=== PATIENT | female | born 1955 | race Caucasian/White ===

== ENCOUNTER 2024-01-19 20:01 | Emergency (ER) | payer MEDICARE ==
[~2024-01-19] VITALS: Ht 160 cm; Wt 63.5 kg
[2024-01-19] MEDS ORDERED: Ondansetron HCl 2 MG / ML 2ML Vial IV ONE ×2 (20:15→22:20)
[2024-01-19] MEDS ORDERED: Ketorolac Tromethamine 15mg Vial IV ONE (20:15)
[2024-01-19 20:49] LABS: Source, Urine Clean Catch
[2024-01-19 20:54] LABS: Appearance, Urine Clear (Clear); Bilirubin, Urine Neg (Neg); Blood, Urine 1+ (Neg); Color, Urine Yellow (P-Yellow); Glucose Qualitative, Urine Neg (Neg); Ketones, Urine Neg (Neg); Leukocyte Esterase, Urine 2+ (Neg); Nitrite, Urine Pos (Neg); Protein, Urine 1+ (Neg); Specific Gravity, Urine 1.015 (1.003-1.022); Urobilinogen, Urine NORM (Normal)
[2024-01-19 21:03] LABS: Bacteria Many /hpf; Squamous Epithelial Cells Few /hpf (Few)
[2024-01-19 21:17] LABS: Hematocrit 38.7 % (33.0-51.0); Hemoglobin 12.5 g/dL (11.5-16.0); Mean Corpuscular HGB 30.9 pg (26.0-34.0); Mean Corpuscular HGB Conc 32.3 g/dL (31.5-36.5); Mean Corpuscular Volume 96 fL (80-100); Mean Platelet Volume 10.6 fL (9.1-12.4); Platelet Count 178 K/mm3 (150-400); RDW Coefficient Variation 14.2 % (11.7-14.2); RDW Standard Deviation 49.2 fL (35.1-46.3); Red Blood Cell Count 4.04 M/mm3 (3.80-5.20); White Blood Cell Count 3.91 K/mm3 (4.00-11.30)
[2024-01-19 21:23] LABS: Albumin, Blood 3.6 g/dL (3.4-5.0); Albumin/Globulin Ratio 1.1 (0.8-1.8); Bilirubin, Total 1.2 mg/dL (0.1-1.0); Bun/Creatinine Ratio 20.6 (12.0-20.0); Calcium, Blood 9.1 mg/dL (8.5-10.1); Creatinine, Blood 1.07 mg/dL (0.40-1.00); Globulin, Blood 3.3 g/dL (2.2-4.0); Total Protein, Blood 6.9 g/dL (6.4-8.2)
[2024-01-19] MEDS ORDERED: CefTRIAXone Sodium 1,000 MG in NS 100 ML IV ONE (21:35)
[2024-01-19 22:16] LABS: BAND PERCENT MAN 18 % (0-8); BASOPHILS ABSOLUTE MAN 0.03 K/mm3 (0.00-0.23); BASOPHILS PERCENT MAN 1 % (0-2); EOSINOPHILS PERCENT MAN 0 % (0-6); LYMPHOCYTES ABSOLUTE MAN 0.35 K/mm3 (0.84-5.20); LYMPHOCYTES PERCENT MAN 9 % (21-46); MONOCYTES ABSOLUTE MAN 0.03 K/mm3 (0.16-1.47); MONOCYTES PERCENT MAN 1 % (4-13); NEUTROPHILS ABSOLUTE MAN 3.47 K/mm3 (1.96-9.15); SEG NEUTROPHILS PERCENT MAN 71 % (41-73); TOTAL CELLS COUNTED 100
[2024-01-19] MEDS ORDERED: Morphine Sulfate 4 MG/1 ML Injection IV ONE (22:20)
[2024-01-19] MEDS ORDERED: NS 1,000 ML IV SCH (23:50)
[2024-01-20] MEDS ORDERED: Morphine Sulfate 4 MG/1 ML Injection IV PRN (01:25)
[2024-01-20 01:30] VITALS: BP 104/64
== END 2024-01-20 01:35 | disposition short-term general hospital (02) ==
LOC: ER 20:01
PROVIDERS: Physician Assistant
DX: N13.2 Hydronephrosis with renal and ureteral calculous obstruction (principal); Z88.1 Allergy status to other antibiotic agents
CPT/HCPCS: 74177; 80053; 81001; 85025; 87077; 87086; 87186; 96361; 96365-59; 96375; 96376; 99285-25; J0696; J1885; J2270; J2405; Q9967

== ENCOUNTER → 2024-03-01 | Outpatient (CLI) | payer MEDICARE ==
[2024-03-01 20:03] LABS: Bacterial Vaginosis PCR Negative (NEGATIVE); Candida Group, PCR NOT DETECTED (NOT DETECT)
[2024-03-01 21:30] LABS: Candida glabrata-krusei, PCR DETECTED (NOT DETECT)
== END ==
LOC: LAB 18:33 → LAB SHORT 18:33
PROVIDERS: Physician Assistant
DX: R30.0 Dysuria (principal)
CPT/HCPCS: 87086; 87481; 87661; 87801